=== PATIENT | female | born 1990 | race Caucasian/White ===

== ENCOUNTER → 2023-11-18 11:01 | Outpatient (REF) | payer OTHER, SELFPAY ==
[2023-11-18 15:51] LABS: Varicella Zoster IgG (VZV) Positive
[2023-11-20 16:26] LABS: Quantiferon Mitogen minus NIL 9.92 IU/mL; Quantiferon NIL 0.08 IU/mL; Quantiferon Plus TB1 minus NIL -0.02 IU/mL (<=0.34); Quantiferon Plus TB2 minus NIL -0.03 IU/mL (<=0.34); Quantiferon TB Gold Plus Negative (Negative)
== END ==
LOC: OHS 11:01
PROVIDERS: ATTENDING PHYSICIAN Nurse Practitioner Family
DX: Z23 Encounter for immunization (principal)
CPT/HCPCS: 36415; 86480; 86787

== ENCOUNTER → 2024-11-16 09:00 | Outpatient (REF) | payer BC, SELFPAY ==
[2024-11-16 09:00] LABS: % Basophils 0.7 % (0-2); % Eosinophils 1.3 % (0-6); % Immature Granulocytes 0.2 % (0-0.5); % Lymphocytes 33.7 % (20.5-51.1); % Monocytes 7.7 % (1.7-9.3); % Neutrophils 56.4 % (42.2-75.2); Absolute Eosinophils 0.1 10^3/uL (0-0.7); Absolute Lymphocytes 2.1 10^3/uL (1.2-3.4); Absolute Monocytes 0.5 10^3/uL (0.1-0.6); Absolute Neutrophils 3.4 10^3/uL (1.4-6.5); Hematocrit 40.8 % (37.0-47.0); Hemoglobin 13.7 g/dL (12.0-16.0); Mean Corp Hgb Conc. 33.6 g/dL (33.0-37.0); Mean Corpuscular Hgb 30.4 pg (27.0-31.0); Mean Corpuscular Volume 90.5 fL (81.0-99.0); Nucleated Red Blood Cells % 0 %; Platelet Count 321 10^3/uL (130-400); Red Blood Cell Count 4.51 10^6/uL (4.20-5.40); Red Cell Dist. Width 12.3 % (11.5-14.5); White Blood Cell Count 6.1 10^3/uL (4.8-10.8)
[2024-11-16 12:37] LABS: ALT (SGPT) 17 U/L (0-35); AST (SGOT) 17 U/L (14-36); Albumin 4.6 g/dl (3.5-5.0); Alkaline Phosphatase 59 U/L (38-126); Blood Urea Nitrogen 12 mg/dl (7-17); Calcium 9.8 mg/dl (8.4-10.2); Carbon Dioxide 26 mmol/L (22-30); Chloride 107 mmol/L (98-107); Glucose 99 mg/dl (70-99); HDL Cholesterol 76 mg/dl; Iron 106 ug/dl (37-170); LDL Cholesterol, Calculated 116 mg/dl; Potassium 4.2 mmol/L (3.5-5.1); Sodium 141 mmol/L (135-145); Total Bilirubin 0.5 mg/dl (0.2-1.3); Total Cholesterol 217 mg/dl (50-199); Triglyceride 129 mg/dl (10-149); Very Low Density Lipoprotein 25 mg/dl (0-30); eGFR > 60.00
[2024-11-16 12:47] LABS: Percent Saturation 36 % (20-50); Total Iron Binding Capacity 288 ug/dl (265-497)
[2024-11-16 14:15] LABS: IgA 608 mg/dl (70-400)
[2024-11-16 14:23] LABS: Vitamin D, 25-OH*** 26.6 ng/mL (30-80)
[2024-11-16 14:36] LABS: TSH Reflex To Free T4 1.98 uIU/ml (0.47-4.68)
[2024-11-16 14:40] LABS: Ferritin 20.6 ng/ml (6.24-137)
[2024-11-16 14:54] LABS: Vitamin B12 841 pg/ml (239-931)
[2024-11-17 20:19] LABS: Thyroglobulin Antibodies <1.5 IU/mL (0.0-4.0); Thyroid Peroxidase Ab (TPO) 1.1 IU/mL (0.0-9.0)
[2024-11-18 23:42] LABS: Endomysial IgA Antibody Titer <1:10 (<1:10)
[2024-11-21 14:06] LABS: tTG IgA Antibody 29.3 EU/ml (0-19); tTG IgG Antibody 9.9 EU/ml (0-19)
== END ==
LOC: REG 09:00
PROVIDERS: ATTENDING PHYSICIAN Nurse Practitioner Adult Health
DX: K90.9 Intestinal malabsorption, unspecified (principal); R79.0 Abnormal level of blood mineral; Z00.00 Encounter for general adult medical examination without abnormal findings; Z83.49 Family history of other endocrine, nutritional and metabolic diseases; Z80.0 Family history of malignant neoplasm of digestive organs
CPT/HCPCS: 36415; 80053; 80061; 82306; 82607; 82728; 82784; 83516; 83540; 83550; 83735; 84443; 85025; 86231; 86376; 86800

== ENCOUNTER → 2024-11-30 13:44 | Outpatient (REF) | payer BC, SELFPAY | LOC: RAD 13:44 | PROVIDERS: ATTENDING PHYSICIAN Nurse Practitioner Adult Health | DX: E04.1 Nontoxic single thyroid nodule (principal) | CPT/HCPCS: 76536 ==

== ENCOUNTER → 2025-04-10 08:24 | Outpatient (REF) | payer BC, SELFPAY ==
[2025-04-10 09:35] LABS: HDL Cholesterol 76 mg/dl; LDL Cholesterol, Calculated 112 mg/dl; Very Low Density Lipoprotein 24 mg/dl (0-30)
[2025-04-10 09:52] LABS: Vitamin D, 25-OH*** 20.6 ng/mL (30-80)
== END ==
LOC: REG 08:24
PROVIDERS: ATTENDING PHYSICIAN Nurse Practitioner Adult Health
DX: E55.9 Vitamin D deficiency, unspecified (principal); E78.2 Mixed hyperlipidemia
CPT/HCPCS: 36415; 80061; 82306